=== PATIENT | male | born 1975 | race Caucasian/White ===

== ENCOUNTER 2016-12-06 19:21 | Emergency (ER) | payer MEDICAID ==
[2016-12-06] MEDS ORDERED: DILAUDID 1 MG/ML AMP ONE ×2 (19:57→21:20)
[2016-12-06] MEDS ORDERED: ONDANSETRON ODT 4 MG TAB ONE (19:58)
[2016-12-06] MEDS ORDERED: CYCLOBENZAPRINE 10 MG TAB ONE (19:58)
[2016-12-06] MEDS ORDERED: KETOROLAC 30 MG/ML VIAL ONE (21:20)
[2016-12-06] MEDS ORDERED: ONDANSETRON 4 MG VIAL ONE (21:34)
== END 2016-12-06 22:07 | disposition home or self-care (01) ==
LOC: ER 19:21
CPT/HCPCS: 72072; 72100; 96372; 96374; 96375